=== PATIENT | female | born 1995 | race African-American/Black ===

== ENCOUNTER 2022-04-04 10:42 | Emergency (ER) | payer BC, MEDICAID ==
[~2022-04-04] VITALS: Ht 170.2 cm; Wt 41.0 kg
[2022-04-04] MEDS ORDERED: IBUPROFEN 100MG/5ML UDC PO ONE (11:15)
[2022-04-04 11:21] VITALS: BP 102/73
[2022-04-04] MEDS ORDERED: IBUP-2029 MT (12:46)
== END 2022-04-04 13:06 | disposition home or self-care (01) ==
LOC: ER 10:58
DX: M54.50 Low back pain, unspecified (principal); M62.830 Muscle spasm of back
CPT/HCPCS: 72100; 81025; 99283